=== PATIENT | female | born 1955 | race Caucasian/White ===

== ENCOUNTER 2024-11-26 06:27 | Day surgery (SDC) | payer BC, SELFPAY | END 2024-11-26 15:58 | disposition home or self-care (01) | LOC: GI 06:27 | PROVIDERS: ATTENDING PHYSICIAN Internal Medicine Gastroenterology | DX: Z12.11 Encounter for screening for malignant neoplasm of colon (principal); Z86.0101 Personal history of adenomatous and serrated colon polyps; K57.30 Diverticulosis of large intestine without perforation or abscess without bleeding | CPT/HCPCS: G0105 ==